=== PATIENT | female | born 1975 | race Caucasian/White ===

== ENCOUNTER → 2018-05-07 | Outpatient (CLI) | payer BC ==
[2018-05-08 09:46] LABS: Candida species (DNA Probe) Negative (NEGATIVE); G. vaginalis (DNA Probe) Positive (NEGATIVE); T. vaginalis (DNA Probe) Negative (NEGATIVE)
== END | disposition home or self-care (01) ==
LOC: LAB 10:25 → LAB SHORT 10:25
PROVIDERS: Nurse Practitioner Obstetrics & Gynecology
DX: N76.0 Acute vaginitis (principal)
CPT/HCPCS: 87480; 87510; 87660

== ENCOUNTER 2021-02-05 08:37 | Day surgery (SDC) | payer BC ==
[~2021-02-05] VITALS: Ht 170.2 cm; Wt 88.7 kg
[~2021-02-05 08:37] MED LIST: VENL150ER PO; VITAMIN D325 MC3 PO; Vitamin B-12250 MCG PO
--- NOTE | 2021-02-05 09:23 | NUR ---
02/05/21 0923 SO SHARPE PT UNABLE TO VOID IN PRE OP - BLOOD SAMPLE SENT FOR HCG TESTING.
== END 2021-02-05 11:11 | disposition home or self-care (01) ==
LOC: ORSCSDS 08:37
PROVIDERS: Orthopaedic Surgery
PROC: 01N50ZZ Release Median Nerve, Open Approach (ICD-10-PCS; principal; 2021-02-05 09:45)
DX: G56.01 Carpal tunnel syndrome, right upper limb (principal)
CPT/HCPCS: 84703; J0690; J2250; J2704